=== PATIENT | female | born 1935 | race Two or more races ===

== ENCOUNTER 2025-04-12 17:12 | Observation (INO) | payer MEDICARE, MEDICAID, SELFPAY ==
[2025-04-12 18:10] VITALS: BP 125/78; PULSE 68; RESP 18; TEMP 36.6; O2SAT 98
--- NOTE | 2025-04-12 18:16 | XR_ITS ---
Examination:Right hip AP, lateral, AP pelvis 3 views Technique: Hip AP lateral, AP pelvis, 3 views Exam date and time:Ms. HamptonSafia 25 1821 hours Indications coronary through the right hip today, right hip pain. FINDINGS: Fracture of the greater trochanter right hip which does not appear to extend through the intertrochanteric region No hip dislocation Left hip fundus of the pelvis intact IMPRESSION: Fracture greater trochanter right hip, recommend CT right hip without contrast follow-up to confirm fracture is localized only to the greater trochanter of the right hip.
--- NOTE | 2025-04-12 18:16 | EDRME_ITS ---
Rapid Medical Screening Exam RME Arrival date/time: 04/12/25 17:12 Chief Complaint: Hip Injury/Pain Time Seen by Provider: 04/12/25 18:08 Vital signs: Vital Signs Temperature 97.8 F 04/12/25 18:10 Pulse Rate 68 04/12/25 18:10 Respiratory Rate 18 04/12/25 18:10 Blood Pressure 125/78 04/12/25 18:10 Pulse Oximetry (%) 98 04/12/25 18:10 Oxygen Delivery Method Room Air 04/12/25 18:10 E Narrative: Right hip pain started this morning, no known fall. 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
--- NOTE | 2025-04-12 18:53 | XR_ITS ---
Examination: CT right hip, without contrast. 2-D sagittal reconstructions. 2-D coronal reconstructions. 3-D reconstructions. Date and time of exam:April 12, 2025 1956 hours INDICATIONS: Patient fell today with the right hip, right hip pain CTDI: vol (mGy):4.07 DLP: (mGycm):114 Technique: Multiple 1.25 mm axial sections of the right hip without intravenous contrast have been obtained. 2-D sagittal and coronal reconstructions have been obtained. 3-D reconstructions have been obtained. Low dose protocols were performed. One or more of the following dose reduction techniques were used; automated exposure control, adjustment of the mA and/or KV according to patient size, use of iterative reconstruction technique. Findings: Acute fractures greater trochanter right hip No definite fracture lines through the intertrochanteric region No hip dislocation Bones of pelvis intact IMPRESSION: Acute fractures greater trochanter right hip without major displacement No definite intertrochanteric portion of this fracture Consider MRI right hip follow-up without contrast, to exclude subtle extension of these fractures through the intertrochanteric region
--- NOTE | 2025-04-12 18:53 | XR_ITS ---
Examination: AP chest single view TECHNIQUE: AP portable semiupright chest single view Date and time: April 12, 2025 1928 hours Comparison 08/19/2020 INDICATIONS: Chest pain today. FINDINGS: Normal heart size. Lungs are clear. Osseous structures are intact IMPRESSION: No active disease
--- NOTE | 2025-04-12 18:53 | EKG_ITS ---
[facility] Test Date: 2025-04-12 Pat Name: DARIUS DAO Department: Room: - Gender: Female [employer]: : 1935 Requested By: Devorah Rodriguez Order Number: [id number] Reading MD: Devorah Rodriguez Measurements Intervals [place] Rate: 58 P: 51 NV: 142 QRS: 70 QRSD: 80 T: 70 QT: 392 QTc: 386 Interpretive Statements SINUS BRADYCARDIA WITH OCCASIONAL SUPRAVENTRICULAR PREMATURE COMPLEXES No previous ECG available for comparison /[id number]/[id number]
[2025-04-12 19:28] LABS: Basophils % (Auto) 0 % (0-2.5); Eosinophils # (Auto) 0.2 Thou/mm3 (0.0-0.5); Eosinophils % (Auto) 2 % (0-10); Hemoglobin 9.8 g/dL (12.0-16.0); Immature Granulocytes % (Auto) 0 % (0-0); Immature Granulocytes Auto 0.02 Thou/mm3 (0.00-0.00); Lymphocytes # (Auto) 1.4 Thou/mm3 (1.0-4.8); Lymphocytes % (Auto) 16 % (10-50); Mean Corpuscular HGB Conc 33.8 g/dl (31.0-37.0); Mean Corpuscular Hemoglobin 32.7 pg (25.0-35.0); Mean Corpuscular Volume 97 fL (80-100); Monocytes # (Auto) 0.6 Thou/mm3 (0.0-0.8); Monocytes % (Auto) 7 % (0-12); Neutrophils # (Auto) 6.5 Thou/mm3 (1.8-7.7); Neutrophils % (Auto) 75 % (37-80); Nucleated Red Blood Cell % 0 /100 WBC (0); Platelet Count 204 Thou/mm3 (140-440); RDW Standard Deviation 48.1 fL (36.4-46.3); White Blood Count 8.7 Thou/mm3 (3.6-11.0)
[2025-04-12 19:34] VITALS: BP 147/80; PULSE 59; RESP 26; TEMP 36.9; O2SAT 99
[2025-04-12 19:38] VITALS: BP 147/80; PULSE 66; RESP 19; TEMP 36.9; O2SAT 100
[2025-04-12 19:39] LABS: Partial Thromboplastin Time 27.1 Seconds (22.0-36.0)
--- NOTE | 2025-04-12 19:47 | PD.EDHIP ---
Lower Extremity Injury RME/HPI General Chief Complaint: Hip Injury/Pain Stated Complaint: RIGHT HIP PAIN, BILAT LEG PAIN X TODAY Time Seen by Provider: 04/12/25 18:08 Arrival date/time: 04/12/25 17:12 RME / HPI RME / HPI Narrative: 89-year-old female patient with significant history of dementia came in for evaluation regarding right hip pain. Onset of symptoms earlier this morning family noticed that she was limping and complaining of pain to the right hip. On evaluation patient is denying any history of fall family did not witness any fall. Patient denies any other complaints. Patient is not taking any blood thinner. Related Data Home Medications ?Medication ?Instructions ?Recorded ?Confirmed diphenhydramine HCl 50 mg capsule 50 mg HS PRN Sleep 01/01/24 01/01/24 (Banophen) donepezil 10 mg tablet 10 mg HS 01/01/24 01/01/24 losartan 100 1 tab DAILY 01/01/24 01/01/24 mg-hydrochlorothiazide 25 mg tablet quetiapine 100 mg tablet 100 mg TID 01/01/24 01/01/24 Previous Rx's ?Medication ?Instructions ?Recorded enoxaparin 40 mg/0.4 mL 40 mg (0.4 mL) subcut QDAY 14 days 07/24/17 subcutaneous syringe (Lovenox) #0 ea Allergies Allergy/AdvReac Type Severity Reaction Status Date / Time No Known Allergies Allergy Verified 04/12/25 17:16 Review of Systems Review of Systems Narrative Review of Systems: Review of system reviewed and within normal limits except mentioned in HPI ED Exam Narrative Physical exam: VITAL SIGNS: Reviewed. GENERAL APPEARANCE: Alert and interactive, follows commands, no acute distress, HEAD AND FACE: Non-traumatic. ENT: PERRL, pink conjunctivitis, eyelid no trauma, Mucous membrane moist. NECK: Supple, nontender, no nuchal rigidity. CHEST: No tenderness, no crepitus, no paradoxical movement, no retractions. LUNGS: Clear, well ventilated, symmetric, no rales, no wheezing, no ronchi, no stridor, good breath sounds bilaterally. HEART: Regular rate, regular rhythm, no murmur, no gallops. ABDOMEN: Soft, positive bowel sounds, nondistended, no guarding, nontender, no rebound, no masses, RECTAL: Deferred. GENITAL: Deferred. NEUROLOGICAL: Gross motor function intact sensory function intact, Appropriate for age. MUSCULOSKELETAL: low back nontender, full range of motion. EXTREMITIES: Mild swelling, no deformity right hip tenderness, limited range of motion. Distal neurovascular status intact SKIN: Color pink, dry, no rash, no lacerations, no abrasions, no contusions. LYMPHATICS: Deferred. Course Quality Measures none Orders Category Date Time Status COVID-19 Screening Questionnaire NOW Care 04/12/25 21:39 Active Decision to Admit X1 Care 04/12/25 21:39 Active EKG (ED ONLY) *Do not use* NOW Care 04/12/25 18:54 Completed Consult to Orthopedic Stat Cons 04/12/25 21:37 Ordered Referral Physical Therapy Stat Cons 04/12/25 21:[address] hip RT wo con Stat Exams 04/12/25 18:53 Completed EKG (ED Only) Stat Exams 04/12/25 18:53 Draft XR chest 1V Stat Exams 04/12/25 18:53 Completed XR hip RT w pelvis 2-3V Stat Exams 04/12/25 18:16 Completed CBC [CBC] Stat Lab 04/12/25 19:12 Completed CMP [Comprehensive Metabolic Panel] Stat Lab 04/12/25 19:12 Completed PTT [Partial Thromboplastin Time] Stat Lab 04/12/25 19:12 Completed Troponin I Stat Lab 04/12/25 19:12 Completed UA, C/S IF [Urinalysis, C/S if Indicated] Stat Lab 04/12/25 18:54 Ordered Vital Signs Vital signs: Vital Signs Temperature 97.8 F 04/12/25 18:10 Pulse Rate 68 04/12/25 18:10 Respiratory Rate 18 04/12/25 18:10 Blood Pressure 125/78 04/12/25 18:10 Pulse Oximetry (%) 98 04/12/25 18:10 Oxygen Delivery Method Room Air 04/12/25 18:10 Extremity Injury, Lower MDM Narrative MDM Narrative:: 89-year-old female patient with significant history of dementia came in for evaluation regarding right hip pain. Onset of symptoms earlier this morning family noticed that she was limping and complaining of pain to the right hip. On evaluation patient is denying any history of fall family did not witness any fall. Patient denies any other complaints. Patient is not taking any blood thinner. Laboratory workup all came back with a hemoglobin of 9.8 hematocrit of 59.0. Creatinine 1.4 BUN normal the rest of the labs unremarkable. CT scan of the hip showed greater trochanteric fracture minimally displaced, with no intertrochanteric component. Case discussed with orthopedic surgeon on-call, Dr. Nolasco who advised me to admit the patient for further management. Patient data External records reviewed:: None Clinical information provided by:: patient and family Social determinants that could affect healthcare access:: none Patient has the following chronic illnesses:: Dementia, hypertension How is presenting disease/condition affected by chronic disease/condition?: uneffected by Evaluation data The following diagnostics were reviewed and interpreted by me:: lab results, radiology exam(s) and EKG tracing(s) Lab and/or radiology exams considered but not ordered:: None Interpretation Summary: EKG showed sinus bradycardia, ventricular rate of 58 bpm, no ST segment elevation depression noted. Medications / Prescriptions Medications or Prescriptions considered but not ordered:: None Medication administrations:: None Consultations Consultation(s) initiated? (list below): Yes Consultation #1 (Physician, Specialty, Details): Dr Nolasco orthopedic surgeon thank you Diagnosis Extremity Injury, Lower Differential Diagnosis: other (Hip fracture hip dislocation trochanteric fracture) Most likely diagnosis given after review of the tests above:: Greater trochanteric fracture right Admission Indicated Admission indicated?: indicated Admission Request Was there a request for admission?: Yes Admission Attestation Admission request attestation: Discussed case with [Dr. Ballard] from Hospitalist service regarding admission. Discussed patients ED course, exam findings, labs, and radiology results. The Hospitalist [agrees to accept the patient for admission. Disposition Plan Disposition Plan: Admit Discharge Plan Plan Patient Disposition: Admit Acute Care w/in Hospital Prescriptions/Referrals Prescriptions/Med Rec: No Action enoxaparin [Lovenox] 40 MG/0.4 ML syringe 40 mg Sub-Q QDAY 14 Days Qty: 0 0RF diphenhydramine HCl [Banophen] 50 mg capsule 50 mg HS PRN (Reason: Sleep) Patient Comments: TAKE 1 CAPSULE BY MOUTH EVERY DAY AT BEDTIME NEEDED FOR 30 DAYS quetiapine 100 mg tablet 100 mg TID losartan-hydrochlorothiazide 100-25 mg tablet 1 tab DAILY Patient Comments: TAKE 1 TABLET BY MOUTH EVERY DAY donepezil 10 mg tablet 10 mg HS Patient Comments: TAKE 1 TABLET BY MOUTH AT BEDTIME ONCE A DAY Referrals: David Doherty MD [Primary Care Provider] - In 1 week Problem List Clinical Impression: Closed fracture of greater trochanter of right femur Patient/Caregiver Discharge Instructions Print Language: Portuguese Stand Alone Forms: Julia Award Info., Patient Portal Info Letter
[2025-04-12 19:54] LABS: Albumin/Globulin Ratio 1.3 (1.2-2.2); Alkaline Phosphatase 66 U/L (46-116); Anion Gap 6 (7-16); Aspartate Amino Transferase 16 U/L (0-34); BUN/Creatinine Ratio 13 Ratio (12-20); Bilirubin,Total 0.3 mg/dL (0.3-1.2); Blood Urea Nitrogen 18 mg/dL (9-23); Calcium 8.3 mg/dL (8.3-10.6); Calcium (Corrected) 8.3 mg/dL (8.5-10.1); Carbon Dioxide 28.7 mMol/L (20.0-31.0); Chloride 105 mMol/L (98-107); Creatinine (Component) 1.4 mg/dL (0.6-1.3); Globulin 3.2 gm/dL (2.3-3.5); Glucose 120 mg/dL (74-106); Osmolality,Calculated 282 (275-295); Potassium 4.5 mMol/L (3.4-5.1); Sodium 140 mMol/L (136-145); Total Protein 7.2 gm/dL (5.7-8.2); Troponin I < 0.020 ng/mL (0.0-0.045); eGFR 36 See Note
[2025-04-12 20:04] LABS: Alanine Aminotransferase < 7 U/L (10-49)
[2025-04-12 20:26] VITALS: BMI 19.6
--- NOTE | 2025-04-12 21:52 | PD.ORTHCON ---
HPI Consult details Reason for consultation narrative: Pain right hip History of present illness: Patient noted by family having more more difficulty ambulating today. Pain in right hip girdle. No other complaints. Past Medical History Past Medical History NEUROLOGIC: Positive Dementia, Alzheimer's Disease, Head Trauma and Traumatic Brain Injury; Negative Neurological Disorders, Cerebrovascular Accident, Transient Ischemic Attacks (TIA), Parkinson's Disease, Brain Tumor, Meningitis, Seizures, Epilepsy, Multiple Sclerosis, Cerebral Palsy, Amyotrophic Lateral Sclerosis (ALS/Danyelle Gehrig's), Guillain-George Syndrome, Spina Bifida, Paralysis, Peripheral Neuropathy, Pena's Palsy, Subdural Hematoma or Spinal Cord Injury CARDIAC: Positive Hypertension; Negative Congestive Heart Failure RESPIRATORY: Negative Chronic Obstructive Pulmonary Disease (COPD) GASTROINTESTINAL: Negative Gastrointestinal Disorders, Cirrhosis, Pancreatitis, Celiac Disease, Gall Bladder Disease, Gastrointestinal Bleed, Esophageal Varices, King's Esophagus, Colitis, Ulcerative Colitis, Diverticulitis, Diverticulosis, Ulcer, Colorectal Cancer, Irritable Bowel, Crohn's Disease, Obstructive Bowel, Hiatal Hernia, Hemorrhoids, Gastroesophageal Reflux Disease, Polyps or Obesity GENITOURINARY: Negative Genitourinary Disorders, Chronic Kidney Disease, Renal Disease, Kidney Stones, Polycystic Kidney Disease, Neurogenic Bladder or Dialysis REPRODUCTIVE: Negative Breast Cancer, Endometriosis, Genital Herpes, Gonorrhea, Pelvic Inflammatory Disease, Previous Pregnancies, Syphilis or Uterine Prolapse MUSCULOSKELETAL: Positive Fractures; Negative Musculoskeletal Disorders, Muscular Dystrophy, Myasthenia Gravis, Marfan's Syndrome, Bone Cancer, Arthritis, Rheumatoid Arthritis, Osteoporosis, Degenerative Disk Disease, Gout, Scoliosis, Carpal Tunnel Syndrome, Fibromyalgia, Degenerative Joint Disease, Osteomyelitis or Poliovirus ENT: Positive Head Trauma ENDOCRINE: Negative Diabetes Mellitus Type 1 or Diabetes Mellitus Type 2 HEMATOLOGIC: Negative Blood Disorders, Anemia, Leukemia, Hemophilia, Thalassemia, Sickle Cell Disease or Clotting Problems PSYCHO/SOCIAL: Positive Depression; Negative Psychiatric Problems, Schizophrenia, Recreational Drug Use, Bipolar Disorder or Eating Disorder OTHER HISTORY: Negative Hospitalization, Autoimmune Disease, Down Syndrome, Autism, Developmental Delay, Shingles, Falls, Blood Transfusions, Anesthesia Reactions, Organ Transplant, Chemotherapy, Radiation Therapy, Hyperbaric Therapy, Cancer, Breast Cancer, Cervical Cancer, Colorectal Cancer, Lung Cancer or Ovarian Cancer Surgical History SURGICAL: Positive Knee Sx (left knee) and Neurologic Surgery; Negative Endocrine Surgery, Thyroidectomy, Abdominal Surgery, Gastric Bypass Surgery, Gastrostomy, Bowel Surgery, Nephrectomy, Bladder Sling, Ureteral Stent, Joint Replacement, of Shoulder Sx, Amputation, Hip Sx, Open Reduction Internal Fixation, Arthroscopy, of Back Surgery, Brain Shunt, Lumpectomy, Hysterectomy, Tubal Ligation, Section, Organ Transplant or ESWL Social History SMOKING STATUS: Never smoker Meds Home Medications and Allergies Home Medications ?Medication ?Instructions ?Recorded ?Confirmed ?Type diphenhydramine HCl 50 mg capsule 50 mg HS PRN Sleep 01/01/24 01/01/24 History (Banophen) donepezil 10 mg tablet 10 mg HS 01/01/24 01/01/24 History losartan 100 1 tab DAILY 01/01/24 01/01/24 History mg-hydrochlorothiazide 25 mg tablet quetiapine 100 mg tablet 100 mg TID 01/01/24 01/01/24 History Allergies Allergy/AdvReac Type Severity Reaction Status Date / Time No Known Allergies Allergy Verified 04/12/25 17:16 Exam Vital Signs Temp Pulse Resp BP Pulse Ox O2 Del Method 98.5 F 66 19 147/80 H 100 Room Air 04/12/25 19:38 04/12/25 19:38 04/12/25 19:38 04/12/25 19:38 04/12/25 19:38 04/12/25 19:38 Vital signs stable Narrative Exam Patient is alert. Difficult to tell how oriented she is to time place and person since she speaks only Norwegian but follows directions very well and is noted to have appropriate behavior with her daughter Moves head easily [id number]. Good range of motion shoulders elbows wrist hands and fingers No chest wall pain no thoracic or lumbar spine pain Turns head [id number] easily. Examination her lower extremity shows that she has an incision anterior aspect of the left knee from what appears to be distal femur fracture left femur family is unaware of the circumstances of that injury. Examined right lower extremity shows that she is able to flex and extend her right knee right foot and ankle. Does have pain right hip. Results - Ortho Labs 04/12/25 19:12 04/12/25 19:12 Labs: Short CBC 04/12/25 Range/Units 19:12 WBC 8.7 (3.6-11.0) Thou/mm3 Hgb 9.8 L (12.0-16.0) g/dL Hct 29.0 L (36.0-46.0) % Plt Count 204 (140-440) Thou/mm3 BMP 04/12/25 19:12 Sodium 140 Potassium 4.5 Chloride 105 Carbon Dioxide 28.7 BUN 18 Creatinine 1.4 H Glucose 120 H Calcium 8.3 Cardiac Enzymes 04/12/25 Range/Units 19:12 Troponin I < 0.020 (0.0-0.045) ng/mL Liver Function 04/12/25 Range/Units 19:12 Total Bilirubin 0.3 (0.3-1.2) mg/dL AST 16 (0-34) U/L ALT < 7 L (10-49) U/L Alkaline Phosphatase 66 (46-116) U/L Albumin 4.0 (3.4-4.8) gm/dL Hemoglobin 9.8 Assessment & Plan Additional Assessment Additional comments: I reviewed CT scan has greater trochanteric fracture does not appear to extend into the intertrochanteric region. Still symptomatic. Want to get a MRI scan Monday morning. Family unable to take care of her at home. May need skilled nursing placement Plan Admit to hospitalist
[2025-04-12 23:06] VITALS: BP 187/88; PULSE 81; RESP 19; TEMP 37.2; O2SAT 99
--- NOTE | 2025-04-12 23:12 | PD.RESHP ---
Documentation for date of: 04/12/25 [facility] History of Present Illness History of present illness: Lexy Strange is 89 yr female with PMH of Hypertension dementia presenting to ED due to Right leg pain. Patient is poor historian and family was contacted for additional history and chart review. Family noticed new onset limp on right side earlier today. He denied seeing the patient fall and patient herself does not recall falling. Other stated that patient is typically able to complete ADLs without any major issues. Bedside she denies any pain. Typically uses walker or wheelchair for mobility. She is alert and oriented to only self. Patient lives with few family members. Daughter denies hearing of any complaints of dysuria, chest pain, shortness of breath. Endorses that she has good appetite. In the ED vital stable. CBC shows anemia with hemoglobin 9.8, MCV 97. CMP remarkable for BUN 18, elevated creatinine 1.4, GFR 36, glucose 120, corrected calcium 8.3. CT hip showed acute fractures of greater trochanteric of right hip, no major displacement. Orthopedics Dr. Nolasco was consulted. Patient to be admitted for managmet of right greater trochanteric fracture. PMH: as noted above PSH: craniotomy due to subdural hematoma, left knee surgery FamHx: unknown Social: lives in [place] with family members, no smoking, no drinking Meds: quetiapine 100mg, losartan-HCTZ 100/25mg, donepazil 10mg ? Allergies: NKDA Exam Vital Signs Temp Pulse Resp BP Pulse Ox O2 Del Method 99 F 81 19 187/88 H 99 Room Air 04/12/25 23:06 04/12/25 23:06 04/12/25 23:06 04/12/25 23:06 04/12/25 23:06 04/12/25 23:06 Narrative Exam General: Elderly female, No acute distress, cooperative, eating pudding HEENT: NCAT, No JVD noted. Mucosa dry. Pupils are equal and reactive to light bilaterally Cardiovascular: Normal S1 and S2. Regular rate and rhythm. Respiratory: Lungs are clear to auscultation bilaterally. No wheezing or crackles heard. Abdomen: Soft, nontender, not distended, normal bowel sounds. Skin: Warm to touch, dry, no rashes noted Musculoskeletal: No gross injuries. Able to move all 4 extremities. Winces from pain on flexion of right hip. No pitting edema Neuro: Alert and oriented x1. No focal neuro deficits. Psych: Normal affect and mood Results: Labs 04/13/25 04:29 04/12/25 19:12 Labs: Short CBC 04/12/25 Range/Units 19:12 WBC 8.7 (3.6-11.0) Thou/mm3 Hgb 9.8 L (12.0-16.0) g/dL Hct 29.0 L (36.0-46.0) % Plt Count 204 (140-440) Thou/mm3 BMP 04/12/25 19:12 Sodium 140 Potassium 4.5 Chloride 105 Carbon Dioxide 28.7 BUN 18 Creatinine 1.4 H Glucose 120 H Calcium 8.3 Cardiac Enzymes 04/12/25 Range/Units 19:12 Troponin I < 0.020 (0.0-0.045) ng/mL Liver Function 04/12/25 Range/Units 19:12 Total Bilirubin 0.3 (0.3-1.2) mg/dL AST 16 (0-34) U/L ALT < 7 L (10-49) U/L Alkaline Phosphatase 66 (46-116) U/L Albumin 4.0 (3.4-4.8) gm/dL Quality Measures Quality Measures none Advance care planning discussed with:: child Medications Home Medications and Allergies Home Medications ?Medication ?Instructions ?Recorded ?Confirmed ?Type diphenhydramine HCl 50 mg capsule 50 mg HS PRN Sleep 01/01/24 01/01/24 History (Banophen) donepezil 10 mg tablet 10 mg HS 01/01/24 01/01/24 History losartan 100 1 tab DAILY 01/01/24 01/01/24 History mg-hydrochlorothiazide 25 mg tablet quetiapine 100 mg tablet 100 mg TID 01/01/24 01/01/24 History Allergies Allergy/AdvReac Type Severity Reaction Status Date / Time No Known Allergies Allergy Verified 04/12/25 17:16 Visit Medications Acetaminophen (Acetaminophen 325 Mg Tablet) 650 mg PO Q6H PRN PRN Reason: Fever >100.3 or pain Stop: 05/12/25 22:57 Heparin Sodium (Porcine) (Heparin Sod Inj 5000 Unit/Ml Vial) 5,000 unit SC BID CARA Stop: 04/27/25 08:59 Sodium Chloride (Ns) 1,000 mls @ 125 mls/hr IV .Q8H ONE Stop: 04/13/25 07:01 Ondansetron HCl (Ondansetron Inj 2 Mg/Ml Inj 2 Ml) 4 mg IV Q6H PRN; Protocol PRN Reason: NAUSEA OR VOMITING Stop: 05/12/25 22:57 Sennosides (Senna Tablet) 1 tab PO QDAY PRN; Protocol PRN Reason: constipation Stop: 05/12/25 22:57 Assessment & Plan Plan Lexy Strange is 89 yr female with PMH of Hypertension dementia presenting to ED due to Right leg pain. Patient is poor historian and family was contacted for additional history and chart review. Family noticed new onset limp on right side earlier today. He denied seeing the patient fall and patient herself does not recall falling. Orthopedics Dr. Nolasco was consulted. Patient to be admitted for managmet of right greater trochanteric fracture. #Right greater trochanteric fracture Family noticed new onset limp on right side earlier today. He denied seeing the patient fall and patient herself does not recall falling. Had previous fall in 2023 with nondisplaced fractures of pubic rami (per chart review). -Orthopedics Dr. Nolasco was consulted, appreciate recs -no surgery indicated, progress slowly with weight bearing -PT eval pending -social worker masters to evaluate for SNF placement -pain management IV morphine 2mg q4hr prn pain -CT head pending #KATHRINE BUN 18, Cr 1.4. Possibly poor oral intake as patient has dementia vs medication induced. -maintenance fluids -avoid nephrotoxic agents -daily CMP #Normocytic anemia Hb 9.8, MCV 97 on admission. Family denies noticing any blood in stool. -stool occult test pending -day team to consider further workup #hx Dementia #Hx craniotomy s/p subdural hematoma Does no appear to be on any blood thinners. -med rec pending Health maintenance: Dispo: med surg, hip fracture FEN: regular DVT prophylaxis: Subcu heparin CODE STATUS: Full code The patient's management plan was discussed with my attending physician Dr. Duran. Bre Castro, PGY-1 Attending Provider Attestation/Addendum I have examined the patient, reviewed labs and imaging findings, discussed the case with the resident(s), and reviewed entered orders. I agree with the plan of care as outlined in this note, with these additional summaries/recommendations: 89-year-old female with history of hypertension, dementia presents to ED with chief complaint of right leg pain. Family noticed new onset right sided limp earlier today decided to bring patient to the ER. She does not recall a fall, but x-ray of the right hip was positive for greater trochanteric hip fracture. Ortho was consulted who recommended admission for further management. Recommended nonoperative management, so would not initiate pain management and PT evaluation for slow progression of weightbearing, likely will require placement. Kristopher Duran MD
[2025-04-12] MEDS: ACETAMINOPHEN 325 MG TABLET 650 MG PO (23:43)
[2025-04-12] MEDS: SODIUM CHLORIDE 0.9% 1000 ML 1,000 ML 125 ML IV (23:53)
[2025-04-13 00:38] VITALS: BP 167/75; BP 180/82; PULSE 78; RESP 14
[2025-04-13 01:19] VITALS: BMI 22.1
--- NOTE | 2025-04-13 01:49 | PC.NURSE ---
Addendum entered by Jonny Merrill RN 04/13/25 05:45: RAY Fuller contacted Jaci (DTR) at [phone] and completed admission questions. Original Note: Patient unable to answer admission questions. RAY Fuller attempted to contact daughter at [phone] to answer admission questions, but phone call went to voicemail. Will try to contact daughter at a later time.
--- NOTE | 2025-04-13 04:12 | PC.NURSE ---
Patient pulled out IV. RAY Fuller and RAY Tipton attempted to put new IV, but were unsuccessful. RAY Fuller contacted Dr. Amaral to notify him that patient pulled out IV and was refusing nurse to put an IV after missing multiple times. RAY Fuller asked Dr. Landaverde if it is okay to hold fluids for right now since the patient has no IV. Dr. Amaral okayed to hold fluids.
[2025-04-13 05:46] LABS: Basophils % (Auto) 1 % (0-2.5); Eosinophils # (Auto) 0.2 Thou/mm3 (0.0-0.5); Eosinophils % (Auto) 2 % (0-10); Hematocrit 30.1 % (36.0-46.0); Hemoglobin 10.4 g/dL (12.0-16.0); Immature Granulocytes % (Auto) 0 % (0-0); Immature Granulocytes Auto 0.02 Thou/mm3 (0.00-0.00); Lymphocytes # (Auto) 1.9 Thou/mm3 (1.0-4.8); Lymphocytes % (Auto) 24 % (10-50); Mean Corpuscular HGB Conc 34.6 g/dl (31.0-37.0); Mean Corpuscular Hemoglobin 32.7 pg (25.0-35.0); Mean Corpuscular Volume 95 fL (80-100); Monocytes # (Auto) 0.6 Thou/mm3 (0.0-0.8); Monocytes % (Auto) 8 % (0-12); Neutrophils # (Auto) 5.3 Thou/mm3 (1.8-7.7); Neutrophils % (Auto) 66 % (37-80); Nucleated Red Blood Cell % 0 /100 WBC (0); Platelet Count 101 Thou/mm3 (140-440); RDW Standard Deviation 46.5 fL (36.4-46.3); Red Blood Count 3.18 Miln/mm3 (4.00-5.20)
[2025-04-13 06:36] LABS: Alanine Aminotransferase < 7 U/L (10-49); Albumin, Serum 3.9 gm/dL (3.4-4.8); Albumin/Globulin Ratio 1.2 (1.2-2.2); Alkaline Phosphatase 65 U/L (46-116); Anion Gap 10 (7-16); Aspartate Amino Transferase 17 U/L (0-34); BUN/Creatinine Ratio 17 Ratio (12-20); Bilirubin,Total 0.4 mg/dL (0.3-1.2); Blood Urea Nitrogen 15 mg/dL (9-23); Calcium 8.4 mg/dL (8.3-10.6); Calcium (Corrected) 8.5 mg/dL (8.5-10.1); Chloride 105 mMol/L (98-107); Creatinine (Component) 0.9 mg/dL (0.6-1.3); Estimated Creatinine Clearance 33.7 mL/min (>60); Globulin 3.2 gm/dL (2.3-3.5); Glucose 85 mg/dL (74-106); Osmolality,Calculated 279 (275-295); Phosphorous 2.5 mg/dL (2.4-5.1); Potassium 3.7 mMol/L (3.4-5.1); Sodium 140 mMol/L (136-145); Total Protein 7.1 gm/dL (5.7-8.2); eGFR > 60 See Note
--- NOTE | 2025-04-13 06:55 | XR_ITS ---
Examination: CT brain head without contrast. 2-D sagittal coronal reconstructions Date and time of exam:April 13, 2025 at 0734 hours Comparison January 01, 2024 INDICATIONS: Altered mental status this morning CTDI: vol (mGy):46 DLP: (mGycm):978 Technique: Multiple CT axial sections of the brain have been obtained, 5 mm slice thickness. Contrast has not been administered. 2-D sagittal, coronal reconstructions have been obtained Low dose protocols were performed. One or more of the following dose reduction techniques were used; automated exposure control, adjustment of the mA and/or KV according to patient size, use of iterative reconstruction technique. Findings: No significant ventricular enlargement. Intra-axial or extra-axial hemorrhage density is not seen. No mass effect or midline shift Basal cisterns are not remarkable. Fourth ventricle is midline. Cranial vault intact. Left craniotomy defect Impression: Negative for acute hemorrhage, mass effect or midline shift Advise clinical correlation and follow up accordingly
[2025-04-13 07:03] VITALS: PULSE 64; RESP 18; RESP 98
--- NOTE | 2025-04-13 07:12 | ESPR_ITS ---
<Statement entered by Bibi Styles MD - 04/17/25 16:24> I reviewed above note and agree with findings and plans. I have also personally examined the patient with medicine team and went over assessment and plan with medical team including marketing summer intern and resident physician. Documentation for date of: 04/13/25 Subjective Subjective Interval history: Vitals and labs reviewed. pending Ortho reccs in regards to patients right hip fracture. KATHRINE continue IVFs. pending Head CT wo contrast as patient has hx of falls. pending PT eval. will likely require SNF placement Exam Vital Signs Temp Pulse Resp BP Pulse Ox O2 Del Method 99 F 64 18 167/75 H 99 Room Air 04/12/25 23:06 04/13/25 07:03 04/13/25 07:03 04/13/25 00:38 04/12/25 23:06 04/13/25 00:38 Narrative Exam General: Elderly female, No acute distress, cooperative, eating pudding HEENT: NCAT, No JVD noted. Mucosa dry. Pupils are equal and reactive to light bilaterally Cardiovascular: Normal S1 and S2. Regular rate and rhythm. Respiratory: Lungs are clear to auscultation bilaterally. No wheezing or crackles heard. Abdomen: Soft, nontender, not distended, normal bowel sounds. Skin: Warm to touch, dry, no rashes noted Musculoskeletal: No gross injuries. Able to move all 4 extremities. Winces from pain on flexion of right hip. No pitting edema Neuro: Alert and oriented x1. No focal neuro deficits. Psych: Normal affect and mood Objective Labs 04/13/25 04:29 04/13/25 04:29 Labs: Laboratory Results - last 24 hr 04/12/25 04/13/25 19:12 04:29 WBC 8.7 8.0 RBC 3.00 L 3.18 L Hgb 9.8 L 10.4 L Hct 29.0 L 30.1 L MCV 97 95 MCH 32.7 32.7 MCHC 33.8 34.6 RDW Std Deviation 48.1 H 46.5 H Plt Count 204 101 L D Neut % (Auto) 75 66 Lymph % (Auto) 16 24 [place] % (Auto) 7 8 Eos % (Auto) 2 2 Baso % (Auto) 0 1 Neut # (Auto) 6.5 5.3 Lymph # (Auto) 1.4 1.9 [place] # (Auto) 0.6 0.6 Eos # (Auto) 0.2 0.2 Baso # (Auto) 0.0 0.0 Immature Gran # (Auto) 0.02 H 0.02 H Absolute Nucleated RBC 0.00 0.00 Immature Gran % 0 0 Nucleated RBC % 0 0 APTT 27.1 Sodium 140 140 Potassium 4.5 3.7 D Chloride 105 105 Carbon Dioxide 28.7 25.0 Anion Gap 6 L 10 BUN 18 15 Creatinine 1.4 H 0.9 D Estim Creat Clear Calc Not Performed. 33.7 L eGFR 36 L > 60 BUN/Creatinine Ratio 13 17 Glucose 120 H 85 Calculated Osmolality 282 279 Calcium 8.3 8.4 Corrected Calcium 8.3 L 8.5 Phosphorus 2.5 Magnesium 2.0 Total Bilirubin 0.3 0.4 AST 16 17 ALT < 7 L < 7 L Alkaline Phosphatase 66 65 Troponin I < 0.020 Total Protein 7.2 7.1 Albumin 4.0 3.9 Globulin 3.2 3.2 Albumin/Globulin Ratio 1.3 1.2 Quality Measures Quality Measures none Advance care planning discussed with:: patient Assessment & Plan Assessment Current Active Medications: Generic Name Dose Route Start Last Admin Trade Name Freq PRN Reason Stop Dose Admin Acetaminophen 650 mg 04/12/25 22:58 04/12/25 23:43 Acetaminophen 325 Mg Tablet PO 05/12/25 22:57 650 mg Q6H PRN Administration Fever >100.3 or pain Heparin Sodium (Porcine) 5,000 unit 04/13/25 09:00 Heparin Sod Inj 5000 Unit/Ml Vial SC 04/27/25 08:59 BID CARA Morphine Sulfate 2 mg 04/13/25 00:09 Morphine Sulf Inj 10 Mg/Ml Vial IVP 04/18/25 00:08 Q4HR PRN pain 6-10 Ondansetron HCl 4 mg 04/12/25 22:58 Ondansetron Inj 2 Mg/Ml Inj 2 Ml IV 05/12/25 22:57 Q6H PRN NAUSEA OR VOMITING Protocol Sennosides 1 tab 04/12/25 22:58 Senna Tablet PO 05/12/25 22:57 QDAY PRN constipation Protocol Plan 89 yr female with PMH of Hypertension dementia presenting to ED due to Right leg pain. Patient is poor historian and family was contacted for additional history and chart review. Family noticed new onset limp on right side earlier today. He denied seeing the patient fall and patient herself does not recall falling. Orthopedics Dr. Nolasco was consulted. Patient to be admitted for managmet of right greater trochanteric fracture. #Right greater trochanteric fracture Family noticed new onset limp on right side earlier today. He denied seeing the patient fall and patient herself does not recall falling. Had previous fall in 2023 with nondisplaced fractures of pubic rami (per chart review). -Orthopedics Dr. Nolasco was consulted, appreciate recs -no surgery indicated, progress slowly with weight bearing -PT eval pending -outreach and education social worker to evaluate for SNF placement -pain management IV morphine 2mg q4hr prn pain -CT head pending #KATHRINE BUN 18, Cr 1.4. Possibly poor oral intake as patient has dementia vs medication induced. -maintenance fluids -avoid nephrotoxic agents -daily CMP #Normocytic anemia Hb 9.8, MCV 97 on admission. Family denies noticing any blood in stool. -stool occult test pending -day team to consider further workup #hx Dementia #Hx craniotomy s/p subdural hematoma Does no appear to be on any blood thinners. -med rec pending Health maintenance: Dispo: med surg, hip fracture FEN: regular DVT prophylaxis: Subcu heparin CODE STATUS: Full code Case discussed with my attending Dr. Jensen Doherty MD PGY-1
[2025-04-13] MEDS: HEPARIN SOD INJ 5000 UNIT/ML VIAL SC ×2 (07:59→20:43)
--- NOTE | 2025-04-13 08:04 | PC.PT ---
PT eval witheld. Need an ortho consult due to R hip fx.
--- NOTE | 2025-04-13 08:12 | PC.SS ---
SS spoke to patient's daughter, Nelda, regarding history of patient and d/c plans. Patient was admitted for hip fracture. Patient is Japanese speaking only. Patient is pending consult for Dr. Nolasco. Daughter, Nelda, provided history. Daughter states patient resides with her and her family. She was using a wheelchair and walker at home. Patient is independent with ADL's. Dx: Dementia. Daughter, Nelda, states she remains the alt medical decision maker for patient. PcP: Dr. Doherty @ [facility]. SS discussed d/c options of SNF vs HH. PasRR completed. [facility]
[2025-04-13 08:34] VITALS: BP 163/71; PULSE 80; RESP 16; TEMP 36.4; O2SAT 96
[2025-04-13 12:00] VITALS: BP 150/70; PULSE 71; RESP 18; TEMP 36.5; O2SAT 96
[2025-04-13] MEDS: QUEtiapine FUMARATE 100 MG TABLET PO (13:00)
[2025-04-13 16:00] VITALS: BP 142/68; PULSE 70; RESP 18; TEMP 36.6; O2SAT 97
--- NOTE | 2025-04-13 17:03 | PC.NURSE ---
[facility] [id number].
[2025-04-13 20:00] VITALS: BP 159/96; PULSE 94; RESP 18; TEMP 36.4; O2SAT 94
[2025-04-13 20:13] LABS: Collection Type, Urine Clean Catch
[2025-04-13 20:26] LABS: Bilirubin,Urine Negative (Negative); Blood,Urine Negative (Negative); Clarity,Urine Clear (Clear/Hazy); Color,Urine Colorless (Lt Yel-Yel); Culture Indicated,Urine Not Indicated; Glucose, Urine Negative (Negative); Ketones,Urine Negative (Negative); Leukocyte Esterase,Urine Negative (Negative); Nitrite,Urine Negative (Negative); PH,Urine 7.5 (5.0-7.0); Protein,Urine Negative (Neg - Trace); RBC,Urine < 1 /hpf (0-3); Specific Gravity,Urine 1.009 (1.001-1.035); Squamous Epithelial Cell,Urine < 1 /hpf (0-5); Urobilinogen,Urine Negative mg/dL (0.0-1.0); WBC,Urine 1 /hpf (0-5)
[2025-04-13] MEDS: MORPHINE SULF INJ 10 MG/ML VIAL 2 MG IVP (20:42)
[2025-04-13] MEDS: DONEPEZIL HCL 5 MG TABLET 10 MG PO (20:43)
--- NOTE | 2025-04-13 21:06 | PD.ORTHCONPN ---
Subjective Subjective Brief History: Patient noted by family having more more difficulty ambulating today. Pain in right hip girdle. No other complaints. Narrative: Patient received morphine right before I came in to see her. She is sleeping very nicely. I decided not to awaken her. Exam Vital Signs Temp Pulse Resp BP Pulse Ox O2 Del Method 97.5 F 94 18 159/96 H 94 L Room Air 04/13/25 20:00 04/13/25 20:00 04/13/25 20:00 04/13/25 20:00 04/13/25 20:00 04/13/25 20:00 Blood pressure 159/96 Narrative Exam Nursing staff said she was able to weight-bear to tolerance Objective - Ortho Labs 04/13/25 04:29 04/13/25 04:29 Labs: Laboratory Results - last 24 hr 04/13/25 04/13/25 04:29 20:00 WBC 8.0 RBC 3.18 L Hgb 10.4 L Hct 30.1 L MCV 95 MCH 32.7 MCHC 34.6 RDW Std Deviation 46.5 H Plt Count 101 L D Neut % (Auto) 66 Lymph % (Auto) 24 [place] % (Auto) 8 Eos % (Auto) 2 Baso % (Auto) 1 Neut # (Auto) 5.3 Lymph # (Auto) 1.9 [place] # (Auto) 0.6 Eos # (Auto) 0.2 Baso # (Auto) 0.0 Immature Gran # (Auto) 0.02 H Absolute Nucleated RBC 0.00 Immature Gran % 0 Nucleated RBC % 0 Sodium 140 Potassium 3.7 D Chloride 105 Carbon Dioxide 25.0 Anion Gap 10 BUN 15 Creatinine 0.9 D Estim Creat Clear Calc 33.7 L eGFR > 60 BUN/Creatinine Ratio 17 Glucose 85 Calculated Osmolality 279 Calcium 8.4 Corrected Calcium 8.5 Phosphorus 2.5 Magnesium 2.0 Total Bilirubin 0.4 AST 17 ALT < 7 L Alkaline Phosphatase 65 Total Protein 7.1 Albumin 3.9 Globulin 3.2 Albumin/Globulin Ratio 1.2 Ur Collection Type Clean Catch Urine Color Colorless A Urine Clarity Clear Urine pH 7.5 H Ur Specific [place] 1.009 Urine Protein Negative Urine Glucose (UA) Negative Urine Ketones Negative Urine Blood Negative Urine Nitrite Negative Urine Bilirubin Negative Urine Urobilinogen (Auto) Negative Ur Leukocyte Esterase Negative Urine RBC < 1 Urine WBC 1 Ur Squamous Epith Cells < 1 Urine Bacteria None Ur Culture Indicated? Not Indicated Hemoglobin 10.4 Assessment & Plan Assessment Additional comments: Greater trochanter fracture. Daughter great granddaughter taking care of her at home Plan Will get social and human services assistant to see what support can be given to the family or whether SNF placement required Documentation for date of: 04/13/25
--- NOTE | 2025-04-13 21:44 | PC.NURSE ---
Spoke to daughter Jaci for update, get the home med list.
[2025-04-14] VITALS (8 sets, daily range): BP systolic 116–150; BP diastolic 55–90; PULSE 64–96; RESP 18–96; TEMP 36.2–37; O2SAT 95–99; BMI 11.0; BMI 12.0
[2025-04-14] MEDS: QUEtiapine FUMARATE 100 MG TABLET PO ×2 (05:25→21:04)
[2025-04-14 05:51] LABS: Basophils % (Auto) 1 % (0-2.5); Eosinophils # (Auto) 0.2 Thou/mm3 (0.0-0.5); Eosinophils % (Auto) 4 % (0-10); Hematocrit 26.6 % (36.0-46.0); Hemoglobin 8.9 g/dL (12.0-16.0); Immature Granulocytes % (Auto) 0 % (0-0); Immature Granulocytes Auto 0.02 Thou/mm3 (0.00-0.00); Lymphocytes # (Auto) 2.1 Thou/mm3 (1.0-4.8); Lymphocytes % (Auto) 33 % (10-50); Mean Corpuscular HGB Conc 33.5 g/dl (31.0-37.0); Mean Corpuscular Hemoglobin 32.5 pg (25.0-35.0); Mean Corpuscular Volume 97 fL (80-100); Monocytes # (Auto) 0.6 Thou/mm3 (0.0-0.8); Monocytes % (Auto) 9 % (0-12); Neutrophils # (Auto) 3.5 Thou/mm3 (1.8-7.7); Neutrophils % (Auto) 54 % (37-80); Nucleated Red Blood Cell % 0 /100 WBC (0); Platelet Count 196 Thou/mm3 (140-440); RDW Standard Deviation 48.4 fL (36.4-46.3); Red Blood Count 2.74 Miln/mm3 (4.00-5.20); White Blood Count 6.5 Thou/mm3 (3.6-11.0)
[2025-04-14 06:15] LABS: Alanine Aminotransferase < 7 U/L (10-49); Albumin, Serum 3.5 gm/dL (3.4-4.8); Albumin/Globulin Ratio 1.2 (1.2-2.2); Alkaline Phosphatase 59 U/L (46-116); Anion Gap 6 (7-16); Aspartate Amino Transferase 14 U/L (0-34); BUN/Creatinine Ratio 21 Ratio (12-20); Bilirubin,Total 0.4 mg/dL (0.3-1.2); Blood Urea Nitrogen 19 mg/dL (9-23); Calcium 8.3 mg/dL (8.3-10.6); Calcium (Corrected) 8.7 mg/dL (8.5-10.1); Carbon Dioxide 27.7 mMol/L (20.0-31.0); Chloride 105 mMol/L (98-107); Creatinine (Component) 0.9 mg/dL (0.6-1.3); Estimated Creatinine Clearance 28.9 mL/min (>60); Globulin 2.9 gm/dL (2.3-3.5); Glucose 106 mg/dL (74-106); Osmolality,Calculated 279 (275-295); Potassium 4.4 mMol/L (3.4-5.1); Sodium 139 mMol/L (136-145); Total Protein 6.4 gm/dL (5.7-8.2); eGFR > 60 See Note
[2025-04-14] MEDS: HEPARIN SOD INJ 5000 UNIT/ML VIAL SC ×2 (08:41→21:04)
--- NOTE | 2025-04-14 13:16 | ESPR_ITS ---
<Statement entered by Bibi Styles MD - 04/17/25 16:25> I reviewed above note and agree with findings and plans. I have also personally examined the patient with medicine team and went over assessment and plan with medical team including fashion intern and resident physician. Documentation for date of: 04/14/25 Subjective Subjective Interval history: Patient seen today at the bedside found awake, alert, orientedx 1 (self) but improved with reorientation. No active complaints at this time. No overnight events reported. Vitals and labs reviewed. Patient is pending MRI of the right hip and Ortho recommendations. Exam Vital Signs Temp Pulse Resp BP Pulse Ox O2 Del Method 97.9 F 67 18 143/90 H 99 Room Air 04/14/25 11:41 04/14/25 11:53 04/14/25 11:53 04/14/25 11:41 04/14/25 11:41 04/14/25 07:38 Narrative Exam General: Elderly female, No acute distress, cooperative, eating pudding HEENT: NCAT, No JVD noted. Mucosa dry. Pupils are equal and reactive to light bilaterally Cardiovascular: Normal S1 and S2. Regular rate and rhythm. Respiratory: Lungs are clear to auscultation bilaterally. No wheezing or crackles heard. Abdomen: Soft, nontender, not distended, normal bowel sounds. Skin: Warm to touch, dry, no rashes noted Musculoskeletal: No gross injuries. Able to move all 4 extremities. Winces from pain on flexion of right hip. No pitting edema Neuro: Alert and oriented x1. No focal neuro deficits. Psych: Normal affect and mood Objective Labs 04/14/25 05:17 04/14/25 05:17 Labs: Laboratory Results - last 24 hr 04/13/25 04/14/25 20:00 05:17 WBC 6.5 RBC 2.74 L Hgb 8.9 L Hct 26.6 L MCV 97 MCH 32.5 MCHC 33.5 RDW Std Deviation 48.4 H Plt Count 196 D Neut % (Auto) 54 Lymph % (Auto) 33 [place] % (Auto) 9 Eos % (Auto) 4 Baso % (Auto) 1 Neut # (Auto) 3.5 Lymph # (Auto) 2.1 [place] # (Auto) 0.6 Eos # (Auto) 0.2 Baso # (Auto) 0.0 Immature Gran # (Auto) 0.02 H Absolute Nucleated RBC 0.00 Immature Gran % 0 Nucleated RBC % 0 Sodium 139 Potassium 4.4 D Chloride 105 Carbon Dioxide 27.7 Anion Gap 6 L BUN 19 Creatinine 0.9 Estim Creat Clear Calc 28.9 L eGFR > 60 BUN/Creatinine Ratio 21 H Glucose 106 Calculated Osmolality 279 Calcium 8.3 Corrected Calcium 8.7 Total Bilirubin 0.4 AST 14 ALT < 7 L Alkaline Phosphatase 59 Total Protein 6.4 Albumin 3.5 Globulin 2.9 Albumin/Globulin Ratio 1.2 Ur Collection Type Clean Catch Urine Color Colorless A Urine Clarity Clear Urine pH 7.5 H Ur Specific [place] 1.009 Urine Protein Negative Urine Glucose (UA) Negative Urine Ketones Negative Urine Blood Negative Urine Nitrite Negative Urine Bilirubin Negative Urine Urobilinogen (Auto) Negative Ur Leukocyte Esterase Negative Urine RBC < 1 Urine WBC 1 Ur Squamous Epith Cells < 1 Urine Bacteria None Ur Culture Indicated? Not Indicated Quality Measures Quality Measures none Advance care planning discussed with:: patient Assessment & Plan Assessment Current Active Medications: Generic Name Dose Route Start Last Admin Trade Name Tawandaq PRN Reason Stop Dose Admin Acetaminophen 650 mg 04/12/25 22:58 04/12/25 23:43 Acetaminophen 325 Mg Tablet PO 05/12/25 22:57 650 mg Q6H PRN Administration Fever >100.3 or pain Protocol Diphenhydramine HCl 50 mg 04/13/25 17:13 Diphenhydramine 25 Mg Capsule PO 05/13/25 17:12 HS PRN INSOMNIA Donepezil HCl 10 mg 04/13/25 21:00 04/13/25 20:43 Donepezil Hcl 5 Mg Tablet PO 05/13/25 20:59 10 mg HS CARA Administration Heparin Sodium (Porcine) 5,000 unit 04/13/25 09:00 04/14/25 08:41 Heparin Sod Inj 5000 Unit/Ml Vial SC 04/27/25 08:59 5,000 unit BID CARA Administration Morphine Sulfate 2 mg 04/13/25 00:09 04/13/25 20:42 Morphine Sulf Inj 10 Mg/Ml Vial IVP 04/18/25 00:08 2 mg Q4HR PRN Administration pain 6-10 Ondansetron HCl 4 mg 04/12/25 22:58 Ondansetron Inj 2 Mg/Ml Inj 2 Ml IV 05/12/25 22:57 Q6H PRN NAUSEA OR VOMITING Protocol Quetiapine Fumarate 100 mg 04/13/25 12:05 04/14/25 05:25 Quetiapine Fumarate 100 Mg Tablet PO 05/13/25 12:04 100 mg TID CARA Administration Sennosides 1 tab 04/12/25 22:58 Senna Tablet PO 05/12/25 22:57 QDAY PRN constipation Protocol Plan 89 yr female with PMH of Hypertension dementia presenting to ED due to Right leg pain. Patient is poor historian and family was contacted for additional history and chart review. Family noticed new onset limp on right side earlier today. He denied seeing the patient fall and patient herself does not recall falling. Orthopedics Dr. Nolasco was consulted. Patient to be admitted for managmet of right greater trochanteric fracture. #Right greater trochanteric fracture Family noticed new onset limp on right side earlier today. He denied seeing the patient fall and patient herself does not recall falling. Had previous fall in 2023 with nondisplaced fractures of pubic rami (per chart review). no surgery indicated, progress slowly with weight bearing -Orthopedics Dr. Nolasco was consulted, appreciate recs -PT eval pending -social services assistant to evaluate for SNF placement -pain management IV morphine 2mg q4hr prn pain -Right hip MRI pending #KATHRINE -resolved BUN 18, Cr 1.4. Possibly poor oral intake as patient has dementia vs medication induced. -maintenance fluids -avoid nephrotoxic agents -daily CMP #Normocytic anemia Hb 9.8, MCV 97 on admission. Family denies noticing any blood in stool. -stool occult test pending #hx Dementia #Hx craniotomy s/p subdural hematoma Does no appear to be on any blood thinners. -donepezil 10mg HS Health maintenance: Dispo: med surg, hip fracture FEN: regular DVT prophylaxis: Subcu heparin CODE STATUS: Full code Case discussed with my senior Dr. Cano and my attending Dr. Jensen Doherty MD PGY-1 LPatient examined and case discussed with the team including attending physician. Note reviewed, I agree with the care plan as documented. Please refer to the note above for further details. - Bin Cano MD, PGY 2 Disclaimer: The document may contain phonetic/typographic errors due to voice recognition software. These errors are purely due to imperfections in the software program and should not be misconstrued in any way to compromise the substance of the patient's medical care during this visit. L
--- NOTE | 2025-04-14 18:20 | PC.NURSE ---
RN received a call from [employer] questioning the pt surgical history. pt has dementia so unable to answer appropriately. the pt dtr was at bedside to answer MRI screening questions, but pt dtr states she had a falling out with her mom and hadnt seem her in 30 years. She only recently, (in the last 5 years) started seeing her mom again. Pt dtr knows her mom had surgery on her head but is unsure exactly was type of surgery was done. orthopaedic technologist doesn't feel comfortable scanning the pt without knowing what surgery was done. orthopaedic technologist says there is something in her that looks metallic. made aware. No orders given at this time.
[2025-04-14] MEDS: DONEPEZIL HCL 5 MG TABLET 10 MG PO (21:04)
--- NOTE | 2025-04-14 21:51 | CONPN_ITS ---
Subjective Subjective Brief History: Patient noted by family having more more difficulty ambulating today. Pain in right hip girdle. No other complaints. Narrative: She is awake tonight. She appears alert and answers simple questions. Having less pain. Want to get her up with PT Exam Vital Signs Temp Pulse Resp BP Pulse Ox O2 Del Method 97.6 F 64 19 150/79 H 97 Room Air 04/14/25 20:00 04/14/25 20:00 04/14/25 20:00 04/14/25 20:00 04/14/25 20:00 04/14/25 20:00 Vital signs stable Narrative Exam Moves both lower extremities including ankles knees and less pain in the hip Objective - Ortho Labs 04/14/25 05:17 04/14/25 05:17 Labs: Laboratory Results - last 24 hr 04/14/25 05:17 WBC 6.5 RBC 2.74 L Hgb 8.9 L Hct 26.6 L MCV 97 MCH 32.5 MCHC 33.5 RDW Std Deviation 48.4 H Plt Count 196 D Neut % (Auto) 54 Lymph % (Auto) 33 [place] % (Auto) 9 Eos % (Auto) 4 Baso % (Auto) 1 Neut # (Auto) 3.5 Lymph # (Auto) 2.1 [place] # (Auto) 0.6 Eos # (Auto) 0.2 Baso # (Auto) 0.0 Immature Gran # (Auto) 0.02 H Absolute Nucleated RBC 0.00 Immature Gran % 0 Nucleated RBC % 0 Sodium 139 Potassium 4.4 D Chloride 105 Carbon Dioxide 27.7 Anion Gap 6 L BUN 19 Creatinine 0.9 Estim Creat Clear Calc 28.9 L eGFR > 60 BUN/Creatinine Ratio 21 H Glucose 106 Calculated Osmolality 279 Calcium 8.3 Corrected Calcium 8.7 Total Bilirubin 0.4 AST 14 ALT < 7 L Alkaline Phosphatase 59 Total Protein 6.4 Albumin 3.5 Globulin 2.9 Albumin/Globulin Ratio 1.2 Hemoglobin 8.9 Assessment & Plan Assessment Additional comments: Follow-up with physical therapy. Weight-bear to tolerance. Reviewed physical therapy note. She did well. Can cancel MRI scan. Plan community services coordinator to see where she would be best care for Documentation for date of: 04/14/25
[2025-04-15] VITALS (7 sets, daily range): BP systolic 139–151; BP diastolic 66–95; PULSE 62–76; RESP 16–98; TEMP 36.1–36.6; O2SAT 95–98; BMI 11.0
[2025-04-15 05:46] LABS: Basophils % (Auto) 1 % (0-2.5); Eosinophils # (Auto) 0.2 Thou/mm3 (0.0-0.5); Eosinophils % (Auto) 4 % (0-10); Hematocrit 26.4 % (36.0-46.0); Immature Granulocytes % (Auto) 0 % (0-0); Immature Granulocytes Auto 0.01 Thou/mm3 (0.00-0.00); Lymphocytes # (Auto) 1.8 Thou/mm3 (1.0-4.8); Lymphocytes % (Auto) 31 % (10-50); Mean Corpuscular HGB Conc 34.1 g/dl (31.0-37.0); Mean Corpuscular Hemoglobin 32.5 pg (25.0-35.0); Mean Corpuscular Volume 95 fL (80-100); Monocytes # (Auto) 0.4 Thou/mm3 (0.0-0.8); Monocytes % (Auto) 8 % (0-12); Neutrophils # (Auto) 3.3 Thou/mm3 (1.8-7.7); Neutrophils % (Auto) 57 % (37-80); Nucleated Red Blood Cell % 0 /100 WBC (0); Platelet Count 232 Thou/mm3 (140-440); RDW Standard Deviation 48.5 fL (36.4-46.3); Red Blood Count 2.77 Miln/mm3 (4.00-5.20); White Blood Count 5.8 Thou/mm3 (3.6-11.0)
[2025-04-15 06:26] LABS: Alanine Aminotransferase < 7 U/L (10-49); Albumin, Serum 3.5 gm/dL (3.4-4.8); Albumin/Globulin Ratio 1.3 (1.2-2.2); Alkaline Phosphatase 67 U/L (46-116); Anion Gap 7 (7-16); Aspartate Amino Transferase 13 U/L (0-34); BUN/Creatinine Ratio 22 Ratio (12-20); Bilirubin,Total 0.3 mg/dL (0.3-1.2); Blood Urea Nitrogen 24 mg/dL (9-23); Calcium 8.4 mg/dL (8.3-10.6); Calcium (Corrected) 8.8 mg/dL (8.5-10.1); Carbon Dioxide 26.2 mMol/L (20.0-31.0); Chloride 108 mMol/L (98-107); Creatinine (Component) 1.1 mg/dL (0.6-1.3); Estimated Creatinine Clearance 23.6 mL/min (>60); Globulin 2.8 gm/dL (2.3-3.5); Glucose 103 mg/dL (74-106); Osmolality,Calculated 285 (275-295); Potassium 4.5 mMol/L (3.4-5.1); Sodium 141 mMol/L (136-145); Total Protein 6.3 gm/dL (5.7-8.2); eGFR 48 See Note
[2025-04-15] MEDS: HEPARIN SOD INJ 5000 UNIT/ML VIAL SC (08:25)
[2025-04-15 09:29] LABS: OBS Card Lot # 23001; OBS Developer Lot # 55284; OBS Performed By malia; OBS QC OK? Yes; Occult Blood, Stool Negative (Negative)
--- NOTE | 2025-04-15 09:46 | PC.SS ---
SS spoke to pt dtrNelda in regards to SNF options for [facility] or [facility], per Nelda they want [facility]. SS reached out to Zaynab at [facility], file exchanged PAS[facility], per Zaynab she will start on auth.
--- NOTE | 2025-04-15 09:49 | ESDS_ITS ---
<Statement entered by Bibi Styles MD - 04/25/25 14:59> I reviewed above note and agree with findings and plans. I have also personally examined the patient with medicine team and went over assessment and plan with medical team including internal control analyst and resident physician. Planned Discharge Date 04/15/25 DS: Providers Provider Date of admission: 04/12/25 23:05 Primary care physician: David Doherty MD Admitting Provider: Kristopher Duran MD Attending Provider on Admission: Bibi Styles MD Consults: 04/12/25 21:37 Consult to Orthopedic Stat Comment: Greater trochanteric fracture right Consulting Provider: Jey Nolasco 04/12/25 21:56 Referral Physical Therapy Stat Comment: Physician Instructions: Instructions: Patient has greater trochanteric fracture. Nondisplaced. We want a get her up weightbearing to tolerance on right lower extremity. Make sure she is safe on walker. Need your recommendations as far as front wheel walker versus flower buncher or picker walker 04/13/25 05:44 Referral Physical Therapy Routine Comment: Physician Instructions: Attending Provider on DC: Bibi Styles MD Discharging Provider: Thomas Doherty MD Anticipated date of discharge: 04/15/25 DS: Diagnosis Problem List Completed Was Problem List Reviewed/Reconciled?: Yes Hospital Course Hospital Course Hospital course: 89-year-old female with past medical history of hypertension, dementia who presented to the ED due to right lower extremity pain. Patient was admitted af ter a mechanical fall and for management of right greater trochanteric fracture. During hospital stay patient was evaluated by orthopedic surgery and determined patient did not need surgical intervention at this time. Was evaluated by physical therapy and pain was managed with medications. Patient will likely need discharge to [facility] facility. This time patient is medically stable for discharge. Follow-up with primary care physician within 1 week of discharge. Follow-up with orthopedic surgery within 2 weeks of discharge. Your medication seroquel has been stopped. Should any symptoms recur or worsen patient is instructed to present to the ED. Problem list: #Right greater trochanteric fracture #KATHRINE?resolved #Normocytic anemia #History of dementia #History of craniotomy status post subdural hematoma Case discussed with my senior Dr. Cano my attending Dr. Jensen Doherty MD PGY-1 Status at Discharge Functional status at discharge: uses cane/walker Overall status at discharge: patient is progressing back to baseline Time Spent with Patient Time attestation: Total time spent providing and/or coordinating discharge services: Time spent: Greater than 30 minutes Exam Vital Signs Temp Pulse Resp BP Pulse Ox O2 Del Method 97.5 F 76 18 151/73 H 97 Room Air 04/15/25 08:00 04/15/25 08:02 04/15/25 08:02 04/15/25 08:00 04/15/25 08:00 04/15/25 08:00 Narrative Exam General: Elderly female, No acute distress, cooperative, eating pudding HEENT: NCAT, No JVD noted. Mucosa dry. Pupils are equal and reactive to light bilaterally Cardiovascular: Normal S1 and S2. Regular rate and rhythm. Respiratory: Lungs are clear to auscultation bilaterally. No wheezing or crackles heard. Abdomen: Soft, nontender, not distended, normal bowel sounds. Skin: Warm to touch, dry, no rashes noted Musculoskeletal: No gross injuries. Able to move all 4 extremities. Winces from pain on flexion of right hip. No pitting edema Neuro: Alert and oriented x1. No focal neuro deficits. Psych: Normal affect and mood Discharge Plan Problem List Was Problem List Reviewed/Reconciled?: Yes Plan Patient Disposition: Xfer Skilled Nsg Fac (SNF) Care Plan Goals: Follow up with primary care physician within 1 week of discharge Your medication seroquel has been stopped. Shouls any symptoms recur or worsen patient is instructed to return to the ED. Prescriptions/Referrals Prescriptions/Med Rec: Continued diphenhydramine HCl [Banophen] 50 mg capsule 50 mg PO HS Patient Comments: TAKE 1 CAPSULE BY MOUTH EVERY DAY AT BEDTIME NEEDED FOR 30 DAYS donepezil 10 mg tablet 10 mg PO HS Patient Comments: TAKE 1 TABLET BY MOUTH AT BEDTIME ONCE A DAY Discontinued quetiapine 100 mg tablet 100 mg PO TID Referrals: David Doherty MD [Primary Care Provider] - Patient/Caregiver Discharge Instructions Print Language: Chinese Stand Alone Forms: Julia Award Info., Patient Portal Info Letter Discharge Order Discharge Orders: Discharge (Routine); Ordered 04/15/25 Ordered By: Thomas Doherty Quality Discharge Quality Measures VTE prophylaxis
[2025-04-15] MEDS: MORPHINE SULF INJ 10 MG/ML VIAL 2 MG IVP (10:10)
--- NOTE | 2025-04-15 11:17 | PC.SS ---
SS spoke to Zaynab at [facility] who requested SS to fax [facility] [phone] SNF orders. SS had DC order signed by Dr. Styles and sent via [facility] FAX.
--- NOTE | 2025-04-15 13:22 | PC.NURSE ---
Daughter does not want seroquel given to mother. I notified Dr. Ruperto Doherty I am not going to give patient the medication.
--- NOTE | 2025-04-15 15:49 | PC.SS ---
SS spoke to pt dtr Nelda who reports she wuld like to transport pt to facility. She can be here about 1700. SS updated RAY Pruitt and Zaynab at [facility]. Packet prepared and left with Sonal BELL
--- NOTE | 2025-04-15 16:22 | PC.NURSE ---
gave report to Reynaldo at [facility]
== END 2025-04-15 17:02 | disposition skilled nursing facility (03) ==
LOC: SERX 21:40 → SERHOLD 23:21 → S3SX 04-14 06:53 → SERHOLD 04-15 06:34 → S3SX 04-15 06:34
PROVIDERS: Nurse Practitioner Family; Student in an Organized Health Care Education/Training Program; Admitting Provider Student in an Organized Health Care Education/Training Program; Emergency Provider Emergency Medicine; PCP Family Medicine; Visit Provider Internal Medicine
DX: S72.111A Displaced fracture of greater trochanter of right femur, initial encounter for closed fracture (principal); W19.XXXA Unspecified fall, initial encounter; N17.9 Acute kidney failure, unspecified; D64.9 Anemia, unspecified; Z01.810 Encounter for preprocedural cardiovascular examination; I10 Essential (primary) hypertension; R00.1 Bradycardia, unspecified; G30.9 Alzheimer's disease, unspecified; F02.80 Dementia in other diseases classified elsewhere, unspecified severity, without behavioral disturbance, psychotic disturbance, mood disturbance, and anxiety; Z87.820 Personal history of traumatic brain injury; F32.A Depression, unspecified
CPT/HCPCS: 36415; 70450; 71045; 73502; 73700; 80053; 81001; 82270; 83735; 84100; 84484; 85025; 85730; 87811; 93005; 93225; 96360; 96361; 96372; 97162; 99285; G0378; J1644; J2270; J7030; A9270